=== PATIENT | male | born 1985 | race Asian ===

== ENCOUNTER → 2017-06-23 | Outpatient (CLI) | payer OTHER ==
[~2017-06-23] MED LIST: ESCI10TA17 PO; LAMO200T38 PO
== END | disposition home or self-care (01) ==
LOC: C.PATHSPEC 13:03
PROVIDERS: ATTEND Plastic Surgery
DX: L90.5 Scar conditions and fibrosis of skin (principal)

== ENCOUNTER → 2017-07-30 | Outpatient (CLI) | payer OTHER | END | disposition home or self-care (01) | LOC: C.PATHSPEC 13:32 | PROVIDERS: ATTEND Plastic Surgery | DX: L90.5 Scar conditions and fibrosis of skin (principal) ==